=== PATIENT | female | born 1950 | race Two or more races ===

== ENCOUNTER 2023-01-04 18:10 | Emergency (ER) | payer MEDICARE, BC ==
[~2023-01-04] VITALS: Ht 149.9 cm; Wt 58.0 kg
[2023-01-04 18:21] VITALS: TEMP 98.2
--- NOTE | 2023-01-04 18:39 | NUR ---
pt is not on anticoagulants does not take asa
[2023-01-04] MEDS ORDERED: acetaminophen 325mg tablet PO STA (20:15)
[2023-01-04] MEDS ORDERED: ibuprofen tablet 400 MG TABLET PO ONE (20:15)
[2023-01-04] MEDS ORDERED: IBUP-1984 PO (20:55)
[2023-01-04 21:09] VITALS: BP 154/82; PULSE 89; RESP 16; O2SAT 98
== END 2023-01-04 21:11 | disposition home or self-care (01) ==
LOC: ER 18:11
DX: S00.03XA Contusion of scalp, initial encounter (principal); S70.01XA Contusion of right hip, initial encounter; S50.311A Abrasion of right elbow, initial encounter; W19.XXXA Unspecified fall, initial encounter; Y93.89 Activity, other specified; Y92.89 Other specified places as the place of occurrence of the external cause; Y99.8 Other external cause status
CPT/HCPCS: 70450; 72125; 73502; 99284